=== PATIENT | male | born 1970 | race Caucasian/White ===

== ENCOUNTER 2019-10-15 16:22 | Emergency (ER) | payer MEDICAID, SELFPAY ==
[2019-10-15 17:53] VITALS: BP 131/74; PULSE 104; RESP 18; TEMP 37.6; O2SAT 97
[2019-10-15 18:46] LABS: Influenza A by IFA Positive (Negative); Influenza B by IFA Negative (Negative)
--- NOTE | 2019-10-15 18:57 | ED_ITS ---
HPI - Fever General: Chief Complaint: Fever Stated Complaint: FLU LIKE SYMPTOMS Time Seen by Provider: 10/15/19 18:57 Source: patient Mode of arrival: ambulatory Limitations: no limitations History of Present Illness: HPI Narrative: Patient comes in today for complaints of cough fever and chills for last 2 to 3 days. Patient appears mildly unwell. Patient appears in no acute distress. Patient's brother is with him and is also been sick. Patient does not routinely take the flu shot. Patient denies any routine medications. Associated symptoms: Reports chills Review of Systems General: Reports: 10 or more systems reviewed and unremarkable except in HPI and below Const: Reports: fever, chills and body aches ENMT: Reports: throat pain Resp: Reports: productive cough PFSH ED PFSH: Statuses (acute, chronic, etc) shown below reflect problem list status as previously entered and may not be historically accurate Social History Smoking and tobacco status: never smoked Physical Exam Const: COMMON NORMALS: no apparent distress and oriented x3 GENERAL APPEARANCE: cooperative HENMT: COMMON NORMALS: normocephalic, external ears normal, EAC's normal, TM's normal bilaterally and external nose normal HEAD & SCALP: normal to inspection and normocephalic FACE & SINUS: normal facial exam NOSE: external nose normal GENERAL EAR: hearing not grossly impaired EXTERNAL EAR: Yes external ears normal EXTERNAL AUDITORY CANAL: EAC's normal TYMPANIC MEMBRANE: TM's normal bilaterally MOUTH: oral and palatal mucosa normal THROAT: posterior oropharynx abnormal erythema Eye: COMMON NORMALS: PERRL and EOMs intact bilaterally PUPIL: Yes PERRL Neck/C-Spine: COMMON NORMALS: full ROM and no lymphadenopathy Lymph: LYMPHATIC: no lymphedema noted Chest: COMMONS NORMALS: inspection of chest normal and palpation of chest normal Resp: COMMON NORMALS: normal respiratory effort AUSCULTATION: rhonchi (mild) Cardio: COMMON NORMALS: regular rate and regular rhythm RATE: regular rate RHYTHM: regular rhythm GI: COMMON NORMALS: normal to inspection, nondistended, normoactive bowel sounds and non-tender : COMMON NORMALS: Yes no CVA tenderness BLADDER/KIDNEY EXAM: Yes no CVA tenderness Back/Pelvis: COMMON NORMALS: no CVA tenderness and thoracic and lumbar spine normal to inspection Extremity: COMMON NORMALS: normal to inspection GENERAL: No edema Neuro: COMMON NORMALS: oriented x3, moves all extremities and no focal motor deficits Psych: COMMON NORMALS: mental status grossly normal and cooperative Skin: COMMON NORMALS: no rashes or lesions noted GENERAL SKIN EXAM: no rashes or lesions noted Course Vital Signs: Vital signs: Vital Signs Temperature 99.6 F 10/15/19 19:12 Pulse Rate 92 10/15/19 19:12 Respiratory Rate 16 10/15/19 19:12 Blood Pressure 124/74 10/15/19 19:12 Pulse Oximetry 97 10/15/19 19:12 MDM - Fever MDM Narrative: Medical decision making narrative: Patient comes in for illness for 2 to 3 days. Exam notes lungs are coarse with some mild rhonchi. Posterior pharynx is slightly erythematous. Respirations are even. No acute distress is noted. Patient appears mildly unwell. Differential diagnosis includes upper respiratory infection, influenza, pneumonia. Laboratory notes influenza type A. Reviewed exam with patient recommendations for supportive care and will go ahead and treat with Tamiflu and Promethazine DM for symptoms. Patient reports understanding agreed to plan. Lab Data: Labs: Lab Results 10/15/19 Range/Units 18:00 Influenza Type A A g Positive H (Negative) POC Influenza B Ag Negative (Negative) Discharge Plan Discharge Patient Disposition: Home, Self-Care Clinical Impression: Influenza Condition: Stable Prescriptions: New promethazine-DM 6.25-15 mg/5 mL syrup 5 ml PO Q6H PRN (Reason: cough and nausea) Qty: 120 RF: 0 Tamiflu 75 mg capsule 75 mg PO BID 5 Days Qty: 10 RF: 0 Discharge Orders: Discharge Order (Routine); Ordered 10/15/19 Ordered By: Augusto Bose Referrals: Hadley Bautista MD [Family Provider] - Discharge Diet: Advance as tolerated Discharge Activity: Increase activity as tolerated Patient Instructions: Influenza (ED) Activity Restrictions/Additional Instructions: Drink plenty of fluids Acetaminophen and ibuprofen for pain and fever Medications as directed Follow-up as needed Coding Level of Care Code ED Regional Operations Manager for Ahsan Kumar Exam Problem Focused
[2019-10-15 19:03] VITALS: BP 124/84; PULSE 94; RESP 16; TEMP 37.6
[2019-10-15 19:12] VITALS: BP 124/74; PULSE 92; RESP 16; TEMP 37.6; O2SAT 97
== END 2019-10-15 19:38 | disposition home or self-care (01) ==
PROVIDERS: Family Medicine; Emergency Provider Nurse Practitioner Family; Family Provider Family Medicine
DX: J11.1 Influenza due to unidentified influenza virus with other respiratory manifestations (principal)
CPT/HCPCS: 87804; 99281; 99283

== ENCOUNTER → 2022-02-09 12:50 | Outpatient (BNVA) | payer MEDICAID, SELFPAY | PROVIDERS: Family Provider Family Medicine; PCP Family Medicine Adult Medicine; Visit Provider Registered Nurse Neonatal Intensive Care | DX: N39.0 Urinary tract infection, site not specified (principal) | CPT/HCPCS: 81000 ==

== ENCOUNTER → 2022-02-10 11:35 | Outpatient (BNVA) | payer MEDICAID, SELFPAY | PROVIDERS: Family Provider Family Medicine; PCP Family Medicine Adult Medicine; Visit Provider Family Medicine Adult Medicine | DX: R30.0 Dysuria (principal); N41.1 Chronic prostatitis | CPT/HCPCS: 81000 ==